=== PATIENT | male | born 1945 | race Caucasian/White ===

== ENCOUNTER → 2018-05-09 11:14 | Outpatient (CLI) | payer MEDICARE, SELFPAY ==
--- NOTE | 2018-05-09 11:41 | RAD_ITS ---
STUDY: X-RAY CHEST REASON FOR EXAM: Male, 72 years old. Some loss of breath. Fatigue for one month. TECHNIQUE: PA and lateral views of the chest. COMPARISON: None. FINDINGS: The lungs are mildly hypoexpanded. There is minimal bibasilar atelectasis. There is no infiltrate or mass. There is no pneumothorax. There is no demonstrated pleural abnormality. Normal size heart. Normal mediastinum and misha. Normal visualized pulmonary arteries. There is atherosclerotic calcification of the aortic arch with tortuosity. There are diffuse degenerative changes of the visualized thoracic spine. There is degenerative osteoarthritis of the bilateral shoulders. There is no demonstrated abnormality of the visualized soft tissue structures of the upper abdomen. RAD/Chest PA and Lateral IMPRESSION: Hypoexpansion lungs with minimal bibasilar atelectasis. Electronically Signed: Jc Orellana DO at 21:12 EDT Tel [phone], Service support ,
[2018-05-09 11:47] LABS: Absolute Lymphocyte Count 1.37 X10^3/ul (0.83-4.51); Absolute Neutrophil Count 3.6 X10^3/uL (2.0-7.7); Basophil# 0.03 X10^3/uL; Basophil% 0.5 % (0-1); Eosinophil# 0.38 X10^3/uL; Eosinophils% 6.1 % (0-5); Hematocrit 40.5 % (40-54); Hemoglobin 13.6 g/dl (13.0-16.5); Lymphocyte # 1.37 X10^3/ul (4.0); Lymphocyte % 22.1 % (19-41); Mean Corp Hgb Conc 33.6 g/gl (32-36); Mean Corpuscular Hgb 29.8 pg (27.0-32.0); Mean Corpuscular Volume 88.8 fL (80-94); Mean Platelet Vol. 8.9 fl (6.2-12.0); Monocyte% 12.9 % (0-10); Neutrophil # 3.61 X10^3/uL (2.7-7.7); Neutrophil % 58.2 % (47-70); POSITIVE COUNT NO; POSITIVE DIFFERENTIAL NO; POSITIVE MORPHOLOGY NO; Platelet Count 279 K/mm3 (150-450); RBC Distribution Width CV 12.6 % (11.6-14.6); RBC Distribution Width SD 40.3 fl (35.1-43.9); Red Blood Count 4.56 M/mm3 (4.6-6.2); White Blood Count 6.2 K/mm3 (4.4-11.0)
[2018-05-09 12:20] LABS: ALB/GLOB Ratio 0.8 RATIO (0.9-2.4); AST(SGOT) 37 U/L (15-37); Alanine Aminotransfer ALT/SGPT 29 U/L (16-61); Albumin, Serum 3.4 g/dL (3.2-5.0); Alkaline Phosphatase 99 U/L (45-117); Anion Gap 9 (5-15); BNP,B-Type NATRIURETIC PEPTIDE 53.8 pg/mL (0-100); BUN 13 mg/dL (7-18); BUN/Creat Ratio 12.6 RATIO (10-20); Calcium,Total 8.9 mg/dL (8.5-10.1); Chloride 105 mmol/L (98-107); Creatinine, Serum 1.03 mg/dL (0.70-1.30); EST Glomerular Filtration Rate 75 mL/min (>60); Est Glom Filt Rate - Afr Amer 91 mL/min (>60); Globulin 4.1 g/dL (2.2-4.2); Glucose 110 mg/dL (74-106); Potassium 4.3 mmol/L (3.5-5.1); Protein, Total 7.5 g/dL (6.4-8.2); Sodium Level 141 mmol/L (136-145); Thyroid Stim Hormone (TSH) 0.59 uIU/mL (0.358-3.74)
== END ==
PROVIDERS: Family Provider Family Medicine; PCP Family Medicine; Visit Provider Family Medicine
DX: R06.02 Shortness of breath (principal); R53.83 Other fatigue; I10 Essential (primary) hypertension; R35.1 Nocturia
CPT/HCPCS: 36415; 71046; 80053; 83880; 84443; 85025

== ENCOUNTER → 2020-05-28 10:39 | Outpatient (CLI) | payer MEDICARE, SELFPAY ==
[2015-09-02 21:01] VITALS: BMI 30.2
--- NOTE | 2020-05-28 11:02 | EKG12_ITS ---
Test Reason : Blood Pressure : / mmHG Vent. Rate : 042 BPM Atrial Rate : 042 BPM P-R Int : 198 ms QRS Dur : 144 ms QT Int : 466 ms P-R-T Axes : 025 006 002 degrees QTc Int : 389 ms Marked sinus bradycardia Right bundle branch block Abnormal ECG Confirmed by ELROY ALMODOVAR, ANA MARÍA ([id number]), makeup editor ADRIANA GEE ([id number]) on 05/31/2020 9:07:44 AM Referred By: Alma Marrero Confirmed By:ANA MARÍA ABBASI MD
[2020-05-28 11:20] LABS: Absolute Lymphocyte Count 1.33 X10^3/uL (0.83-4.51); Absolute Neutrophil Count 3.9 X10^3/uL (2.0-7.7); Basophil# 0.03 X10^3/uL; Basophil% 0.5 % (0-1); Eosinophil# 0.28 X10^3/uL; Eosinophils% 4.5 % (0-5); Hematocrit 36.1 % (40-54); Hemoglobin 11.7 g/dL (13.0-16.5); Lymphocyte # 1.33 X10^3/ul (4.0); Lymphocyte % 21.3 % (19-41); Mean Corp Hgb Conc 32.4 g/dL (32-36); Mean Corpuscular Hgb 30.4 pg (27.0-32.0); Mean Corpuscular Volume 93.8 fL (80-94); Mean Platelet Vol. 9.9 fl (6.2-12.0); Monocyte# 0.68 X10^3/uL; Monocyte% 10.9 % (0-10); NRBC Flagged by Analyzer 0 % (0-5); Neutrophil # 3.91 X10^3/uL (2.7-7.7); Neutrophil % 62.5 % (47-70); Platelet Count 268 K/mm3 (150-450); RBC Distribution Width CV 13.4 % (11.6-14.6); RBC Distribution Width SD 45.1 fl (35.1-43.9); Red Blood Count 3.85 M/mm3 (4.6-6.2); White Blood Count 6.3 K/mm3 (4.4-11.0)
[2020-05-28 11:53] LABS: ALB/GLOB Ratio 1.2 RATIO (0.9-2.4); AST(SGOT) 23 U/L (15-37); Alanine Aminotransfer ALT/SGPT 25 U/L (16-61); Albumin, Serum 3.8 g/dL (3.2-5.0); Alkaline Phosphatase 89 U/L (45-117); Anion Gap 4 (5-15); BUN 20 mg/dL (7-18); BUN/Creat Ratio 21.2 RATIO (10-20); Calcium,Total 8.9 mg/dL (8.5-10.1); Chloride 105 mmol/L (98-107); Creatinine, Serum 0.94 mg/dL (0.70-1.30); EST Glomerular Filtration Rate 83 mL/min (>60); Est Glom Filt Rate - Afr Amer 100 mL/min (>60); Globulin 3.3 g/dL (2.2-4.2); Glucose 90 mg/dL (74-106); PSA,Total - Annual Screen 1.15 ng/mL (0.00-4.00); Potassium 4.5 mmol/L (3.5-5.1); Protein, Total 7.1 g/dL (6.4-8.2); Sodium Level 139 mmol/L (136-145); Thyroid Stim Hormone (TSH) 0.58 uIU/mL (0.358-3.74)
--- NOTE | 2020-05-28 12:02 | CPS ---
Patient had an outpatient EKG which revealed a HR of 42 (currently asymptomatic). No prior EKGs were found. Patient had a syncopal episode last week. The EKG was faxed to the ordering Physician and her office was contacted by phone. Dr. Marrero wants patient to cut his prescribed Metoprolol in half and call the office to schedule a follow-up. The patient and his son were informed and agreeable.
== END ==
PROVIDERS: PCP Family Medicine; Referring Provider Family Medicine; Visit Provider Family Medicine
DX: R55 Syncope and collapse (principal); M54.40 Lumbago with sciatica, unspecified side; K29.70 Gastritis, unspecified, without bleeding; I10 Essential (primary) hypertension; Z12.5 Encounter for screening for malignant neoplasm of prostate
CPT/HCPCS: 36415; 80053; 84153; 84443; 85025; 93005; G0103

== ENCOUNTER 2020-12-04 22:23 | Emergency (ER) | payer MEDICARE, SELFPAY ==
[2020-12-04 22:24] VITALS: BP 159/89; PULSE 79; RESP 18; TEMP 35.6; O2SAT 93; BMI 28.1
--- NOTE | 2020-12-04 22:57 | ED.VIS.GEN ---
History of Present Illness Chief Complaint: Foreign Body Informant: Patient Narrative: 75 year old male presents with concern for esophageal foreign body. States that he was eating chicken breast last night and feels like it is been stuck since that time. States he has been unable to tolerate liquids since that time. Has not tried to eat since that time. States that he has no significant pain in his chest or shortness of breath. Past Medical History - Allergies and Home Meds Allergies/Adverse Reactions: Allergies Penicillins Allergy (Intermediate, Verified 12/04/20 22:46) Swelling tetanus and diphtheria toxoids [tetanus & diphtheria toxoids] Allergy (Verified 12/04/20 22:46) Swelling Primary Care Physician: Alma Marrero MD [Primary Care Provider] - Prior records reviewed: Yes Past Medical History: - - HTN Surgical History: noncontributory Lives: With Family Smoking Status: Never smoker Alcohol: None Drugs: None Review of Systems General: Denies: Chills, Fever, Sweats Eyes: Denies: Visual changes - bilaterally, Diplopia ENT: Denies: Rhinorrhea, Sore throat Cardiovascular: Denies: Chest pain, Palpitations Respiratory: Denies: Dyspnea, Cough, Dyspnea on exertion Gastrointestinal: Denies: Abdominal pain, Nausea, Vomiting, Diarrhea, Melena, Hematochezia Genitourinary: Denies: Dysuria, Hematuria, Frequency Musculoskeletal: Denies: Back pain, Extremity Pain Skin: Denies: Rash, Wounds Neurological: Denies: Headache, Weakness, Numbness Physical Exam Vital Signs/Narrative: Vital Signs Temp Pulse Resp BP Pulse Ox 12/04/20 22:24 96.0 F L 79 18 159/89 H 93 Inital Vital Signs reviewed: Yes General: Well nourished, Well developed, No Acute Distress Head: Normocephalic, Atraumatic Eyes: Perrl, EOMI ENT: Moist mucous membranes, No rhinorrhea Neck: Supple, Nontender Cardiovascular: Regular rate, Regular rhythm, No murmurs Respiratory: No distress, CTA bilaterally, Chest nontender Abdomen: Soft, Nontender, Nondistended, Normal bowel sounds Back: Nontender, Normal Inspection Extremities: Nontender, No edema Skin: Normal color, No rash Neurological: Alert, Oriented x3, Cranial nerves II-XII grossly intact, Normal Strength, Normal Sensation Psychological: Normal affect, Normal Mood Diagnostic/Tx/Re-eval - Medical Decision Making Appears well and nontoxic. Vital signs within normal limits. Patient was given a carbonated beverage which she swallowed and then jumped up and down. This resolved his esophageal food bolus. He is able to tolerate liquids without difficulty. Will be discharged home and asked to follow-up with primary care. Stable at time of discharge. Impression: 1. Esophageal food bolus - resolved ED Disposition - Plan for ED Patient: Disposition: Home or Assisted Living Instructions: ED Esophageal Foreign Body, Resolved Referrals: Alma Marrero MD [Primary Care Provider] - 2 Days
[2020-12-04 23:42] VITALS: BP 138/74; PULSE 75; RESP 16; O2SAT 99
== END 2020-12-04 23:42 | disposition home or self-care (01) ==
PROVIDERS: Emergency Provider Emergency Medicine; PCP Family Medicine
DX: T18.128A Food in esophagus causing other injury, initial encounter (principal); X58.XXXA Exposure to other specified factors, initial encounter; Y93.9 Activity, unspecified; Y92.9 Unspecified place or not applicable; I10 Essential (primary) hypertension; Z79.899 Other long term (current) drug therapy
CPT/HCPCS: 99282

== ENCOUNTER 2022-10-29 11:33 | Emergency (ER) | payer MEDICARE, SELFPAY ==
[2022-10-29 11:34] VITALS: BP 154/70; PULSE 63; RESP 18; TEMP 35.9; O2SAT 96; BMI 27.3
--- NOTE | 2022-10-29 11:50 | RAD_ITS ---
STUDY: X-RAY - RIGHT HAND, ATTENTION SECOND FINGER REASON FOR EXAM: Male, 76 years old. cat bite last night with multiple lacerations of right index finger TECHNIQUE: 3 view(s) of the finger were obtained. COMPARISON: None. FINDINGS: Mild to moderate soft tissue swelling is present around the second digit. No visualized subcutaneous air. Cortical spurring is present at the base of the middle phalanx of the second digit. Normal metacarpal head. Normal metacarpophalangeal joint. Normal proximal phalanx. Normal middle phalanx. Normal distal phalanx. Normal proximal interphalangeal joint. There is mild degenerative arthrosis of the distal interphalangeal joint. There is no demonstrated fracture. RAD/Finger(s) Min 2 Views IMPRESSION: Mild to moderate soft tissue swelling around the second digit. Electronically Signed: Salas Matos MD at 12:22 EST ,
[2022-10-29] MEDS: Rabies Vaccine,Human Diploid 2.5 UNITS Vial IM (12:15)
--- NOTE | 2022-10-29 13:38 | EDS_ITS ---
HPI History of Present Illness Chief Complaint: Bite Detail of Chief Complaint: Cat bite right index finger yesterday Informant: patient Onset/Context/Timing Onset: Yesterday Location: Right index finger Current Severity: Mild Worsened by: Nothing Relieved by: Nothing Associated Symptoms Associated Symptoms: None Narrative Narrative: Cat bite to right index finger yesterday. [id number]. Was at urgent care and prescribed antibiotics but sent to the ED for rabies vaccination Prior similar symptoms: No Recent Illness/Hospitalization: No PFSH PFSH Medical History Hypertension Home Medications gabapentin 300 mg capsule 300 mg PO BID 12/04/20 [History Last Taken Unknown] meloxicam 7.5 mg tablet 7.5 mg PO BID PRN Pain Score 1-10 12/04/20 [History Last Taken Unknown] metoprolol tartrate 50 mg tablet 25 mg PO TID 12/04/20 [History Last Taken Unknown] Allergy/AdvReac Type Severity Reaction Status Date / Time Penicillins Allergy Intermediate Swelling Verified 10/29/22 11:35 tetanus and diphtheria Allergy Swelling Verified 10/29/22 11:35 toxoids [tetanus & diphtheria toxoids] Social History Smoking Status: Never smoker ROS ROS ED Review of Systems ROS Unobtainable: due to encephalopathy Constitutional Constitutional ED: Denies chills or fever(s) Eyes Eyes: Denies blurry vision ENT ENT ED: Denies ear pain Cardiovascular Cardiovascular: Denies chest pain Respiratory/Chest Respiratory/Chest: Denies cough Gastrointestinal Gastrointestinal: Denies abdominal pain Genitourinary Genitourinary ED: Denies dysuria Musculoskeletal Musculoskeletal: Denies arthralgias, back pain or myalgias Integumentary Reports Abrasions; Denies abscess or rash Neurologic Neurologic: Denies headache(s), paresthesias or weakness Psychiatric Psychiatric: Denies anxiety Endocrine Endocrinology: Denies cold intolerance Hematologic/Lymphatic Hematologic/Lymphatic: Reports systems reviewed and no addt'l complaints, except as documented Allergic/Immunologic Allergic/Immunologic ED: Denies mouth swelling EXAM Physical Exam Const Vital Signs: 10/29/22 11:34 Temperature 96.7 F L Temperature Source Temporal Pulse Rate 63 Respiratory Rate 18 Blood Pressure 154/70 H Blood Pressure Mean 98 Pulse Ox 96 Oxygen Delivery Method Room Air Positive well nourished and well developed General Appearance ED: well developed Eyes EOMs intact bilaterally Resp normal respiratory effort Cardio regular rate Extremity Extremity Narrative: Good range of motion to joints. No pain with passive flexion or extension of the involved finger. No pus, erythema, warmth Neuro oriented x3 and no sensory deficits noted Psych mental status grossly normal Skin Skin Narrative: Multiple numerous puncture wounds to the right index finger MDM MDM MDM Narrative Medical decision making narrative: [id number]. Multiple puncture wounds to his right index finger. Good range of motion to the joint. Diffuse swelling about finger without any pain on passive extension or flexion. No pus or bleeding. Neurovascular intact. X- rays were reviewed by the radiologist and myself and showed soft tissue changes only. No foreign bodies which were also considered. Patient had antibiotics prescribed by urgent care. He will take those as prescribed. He is here for rabies vaccine. He received approximately 5 mL of immunoglobulin injected by me around the site +1 additional mL in the right deltoid. He also was given the rabies vaccine. He was given follow-up instructions. He declined tetanus immunization, states he has an allergy. Patient was advised that these wounds are at high risk for infection. This was soaked here. He will do warm soapy soaks 3 times a day and return right away for any signs of infection. Disposition discharge home Impressions: #1 cat bite right index finger #2 rabies vaccination Radiography Diagnostic Testing: Clinical Impression(s) from Imaging Studies Finger X-Ray 10/29/22 11:50 IMPRESSION: Mild to moderate soft tissue swelling around the second digit. Electronically Signed: Salas Matos MD at 12:22 EST Reading Location ID and State: [facility] / [place] , Service support , Discharge Plan Triage Chief Complaint: Bite ED Provider: Anthony Avila Dx/Rx/DC Orders Prescriptions: No Action meloxicam 7.5 MG tablet 7.5 mg PO BID PRN (Reason: Pain Score 1-10) metoprolol tartrate 50 MG tablet 25 mg PO TID gabapentin 300 MG capsule 300 mg PO BID Primary Care Provider: Swathi Wills Referrals: Swathi Wills MD [Primary Care Provider] -
[2022-10-29] MEDS: Rabies Immune Globulin/PF 300 UNIT/ML, 1 ML VIAL 1830 UNIT IM (13:40)
== END 2022-10-29 13:50 | disposition home or self-care (01) ==
PROVIDERS: Emergency Provider Emergency Medicine; PCP Internal Medicine; Visit Provider Emergency Medicine
DX: S61.250A Open bite of right index finger without damage to nail, initial encounter (principal); I10 Essential (primary) hypertension; W55.01XA Bitten by cat, initial encounter; Y92.9 Unspecified place or not applicable; Z79.899 Other long term (current) drug therapy; Z23 Encounter for immunization
CPT/HCPCS: 73140; 90375; 90675; 96372; 99282

== ENCOUNTER 2022-11-01 15:56 | Outpatient (CLI) | payer MEDICARE, SELFPAY ==
[2022-11-01 15:58] VITALS: BP 154/61; PULSE 56; RESP 18; TEMP 35.7; O2SAT 97; BMI 27.1
[2022-11-01] MEDS: Rabies Vaccine,Human Diploid 2.5 UNITS Vial IM (16:42)
--- NOTE | 2022-11-01 16:51 | ED.RN ---
bondactor machine operator Elizabeth assessed pt's finger per this RN request. marked with skin marker and explanation given for signs and symptoms of worsening infection.
== END 2022-11-01 16:53 | disposition home or self-care (01) ==
LOC: ED 16:55
PROVIDERS: PCP Internal Medicine
DX: Z23 Encounter for immunization (principal); Z20.3 Contact with and (suspected) exposure to rabies
CPT/HCPCS: 90675; 96372

== ENCOUNTER 2022-11-05 13:16 | Outpatient (CLI) | payer MEDICARE, SELFPAY ==
[2022-11-05 13:17] VITALS: BP 124/58; PULSE 58; PULSE 61; RESP 16; RESP 18; TEMP 35.8; O2SAT 94; O2SAT 97; BMI 27.1
[2022-11-05] MEDS: Rabies Vaccine,Human Diploid 2.5 UNITS Vial IM (13:29)
== END 2022-11-05 14:18 | disposition home or self-care (01) ==
LOC: ED 14:19
PROVIDERS: PCP Internal Medicine
DX: Z23 Encounter for immunization (principal); Z20.3 Contact with and (suspected) exposure to rabies
CPT/HCPCS: 90675; 96372

== ENCOUNTER 2022-11-12 13:04 | Outpatient (CLI) | payer MEDICARE, SELFPAY ==
[2022-11-12 13:05] VITALS: BP 166/87; PULSE 89; RESP 18; TEMP 36.7; O2SAT 98; BMI 27.1
[2022-11-12] MEDS: Rabies Vaccine,Human Diploid 2.5 UNITS Vial IM (13:25)
== END 2022-11-12 13:45 | disposition home or self-care (01) ==
PROVIDERS: PCP Internal Medicine
DX: Z23 Encounter for immunization (principal)
CPT/HCPCS: 90675; 96372